=== PATIENT | female | born 1955 | race Caucasian/White ===

== ENCOUNTER → 2023-10-28 12:56 | Outpatient (CLI) | payer OTHER, SELFPAY ==
[2023-10-28 13:58] LABS: Appearance Urine UA CLEAR; Bilirubin Urine UA NEGATIVE (NEGATIVE); Color Urine UA YELLOW; Glucose Urine UA NEGATIVE (Negative); Ketones Urine UA NEGATIVE (NEGATIVE); Leukocyte Esterase Urine UA NEGATIVE (NEGATIVE); Nitrite Urine UA NEGATIVE (Negative); Occult Blood Urine UA NEGATIVE (Negative); Protein Urine UA NEGATIVE (Negative); Specific Gravity Urine UA <=1.005 (1.000-1.035); Urobilinogen Urine UA 0.2 E.U./dL (0.2)
[2023-10-28 14:02] LABS: pH Urine UA 6.5 (4.5-8.0)
[2023-10-28 14:05] LABS: Bacteria Urine None Seen; Culture Indicated Urine Cult Not Indicated; RBC Urine None Seen (0-5/HPF); Squamous Epithelial Cell Urine None Seen (0-5/HPF); Urine Volume 10mL (spun); WBC Urine None Seen (0-5/HPF)
[2023-10-28 14:11] LABS: Hemoglobin A1C% w Est Avg Glu 6.4 % (4.0-6.0)
[2023-10-28 14:26] LABS: Add Manual Diff / Slide Review NO; Basophils Absolute Auto 0 /uL (0-100); Basophils Percent Auto 0.7 % (0-2); Eosinophils Absolute Auto 700 /uL (0-450); Eosinophils Percent Auto 10.6 % (2-4); Hematocrit 36.6 % (36-46); Hemoglobin 11.9 g/dL (12.0-16.0); Lymphocytes Absolute Auto 1900 /uL (1100-4500); Lymphocytes Percent Auto 27.8 % (25-40); Mean Corpuscular HGB Conc 32.4 % (30-36); Mean Corpuscular Hemoglobin 27.3 PG (26-34); Mean Corpuscular Volume 84.4 fL (80-100); Monocytes Absolute Auto 500 /uL (0-900); Monocytes Percent Auto 7.4 % (3-14); Neutrophils Absolute Auto 3700 /uL (1500-7000); Neutrophils Percent Auto 53.5 % (50-75); Platelet Count 310 X10^3/uL (150-400); Red Blood Cell Count 4.34 X10^6/uL (4.0-5.2); Red Cell Distribution Width 15.4 % (11.6-14.8)
[2023-10-28 14:38] LABS: BUN Creatinine Ratio 23.9 (6-22); Blood Urea Nitrogen 17 mg/dL (7-17); Calcium 9.3 mg/dL (8.4-10.2); Carbon Dioxide 30 mmol/L (22-32); Chloride 101 mmol/L (98-107); Estimated Glomerular Filt Rate > 60 mL/min (>60); Glucose 134 mg/dL (80-110); HEMOLYSIS < 15 (0-50); Potassium 4.5 mmol/L (3.4-5.1); Sodium 134 mmol/L (137-145)
== END ==
PROVIDERS: PCP Naturopath; Referring Provider Orthopaedic Surgery; Visit Provider Orthopaedic Surgery
DX: Z01.818 Encounter for other preprocedural examination (principal); Z01.812 Encounter for preprocedural laboratory examination; R73.9 Hyperglycemia, unspecified; N39.0 Urinary tract infection, site not specified
CPT/HCPCS: 36415; 80048; 81001; 83036; 85025; 93005; 93010

== ENCOUNTER 2023-11-24 13:25 | Day surgery (SDC) | payer OTHER, SELFPAY ==
[2023-11-18 12:57] VITALS: BMI 27.3
[2023-11-24] VITALS (8 sets, daily range): BP systolic 135–171; BP diastolic 65–83; PULSE 76–88; RESP 11–18; TEMP 35.9–36.9; O2SAT 97–100; BMI 27.3
--- NOTE | 2023-11-24 | DI.RAD.S_ITS ---
PROCEDURE: XR HIP W PEL IF DONE RT 2V INDICATIONS: RIGHT ANTERIOR HIP TECHNIQUE: AP pelvis with lateral view(s) of the right hip(s). COMPARISON: [facility], CR, XR PELVIS WITH LATERAL HIP RIGHT, 10/23/2023, 11:04. [facility], CR, XR HIP W PEL IF DONE RT 2V, 11/24/2023, 17:47. FINDINGS: Bones: No fractures or dislocations. Pelvic ring appears intact. No suspicious bony lesions. Soft tissues: The visualized bowel gas pattern is normal. No suspicious soft tissue calcifications. IMPRESSION: No acute bony abnormality. Dictated by: Melania Mathews M.D. on 11/24/2023 at 19:42 Approved by: Melania Mathews M.D. on 11/24/2023 at 19:43
--- NOTE | 2023-11-24 06:00 | DI.RAD.S_ITS ---
PROCEDURE: XR HIP W PEL IF DONE RT 2V INDICATIONS: HAILE TECHNIQUE: AP pelvis with lateral view(s) of the right hip(s). COMPARISON: [facility] ROCAEL Summers, XR PELVIS WITH LATERAL HIP RIGHT, 10/23/2023, 11:04. FINDINGS: Multiple intra-articular fluoroscopy images demonstrate right total hip arthroplasty. IMPRESSION: Right total hip arthroplasty. Dictated by: Melania Mathews M.D. on 11/24/2023 at 19:16 Approved by: Melania Mathews M.D. on 11/24/2023 at 19:17
[2023-11-24] MEDS: CELECOXIB 200 MG CAPSULE PO (13:50)
[2023-11-24] MEDS: LACTATED RINGERS 1,000 ML 42 ML IV (14:05)
[2023-11-24] MEDS: ACETAMINOPHEN 325 MG TABLET 975 MG PO (15:54)
[2023-11-24] MEDS: VANCOMYCIN 1,000 MG/200 ML PIGGYBACK 200 MG IV (15:54)
--- NOTE | 2023-11-24 16:22 | PM.PREOP ---
Pre-operative Note Interval Note History & Physical reviewed/Exam performed by Physician: Yes Changes to H&P: No
--- NOTE | 2023-11-24 16:24 | PM.PREOP ---
Pre-operative Note Interval Note History & Physical reviewed/Exam performed by Physician: Yes Changes to H&P: No
--- NOTE | 2023-11-24 16:25 | P.OP_ITS ---
Operative Date/Time/Diagnoses Date of procedure: 11/24/23 Time of procedure: 16:40 Pre-op diagnosis: Severe right hip OA Post-op diagnosis: same Procedure & Clinicians Procedure: Right total hip arthroplasty anterior approach Same procedure as scheduled: Yes Indications: The patient has had progressively worsening right hip pain with radiographic changes consistent with arthritis. Non-operative management has failed and the patient has requested total hip replacement. The risks, benefits and alternatives to surgery were discussed with the patient prior to proceeding. Risks discussed included, but were not limited to, failure to relieve pain, leg length discrepancy, dislocation, stiffness, infection, nerve damage, deep venous thrombosis, pulmonary embolism, stroke, coma, heart attack, permanent paralysis and , as well as the potential need for eventual revision of the prosthetic. Surgeon: Gretchen Loredo Ceramic Research Engineer: Mayra Smith Anesthesia Type: General and Spinal Operative Notes Findings: Severe right hip OA, adequate bone, adequate stability Closure Type: primary Specimen(s): none sent Prosthetic devices, grafts, tissues, transplants, or devices: Loredo and nephew polar size 2 standard offset, R3 size 50, neutral poly liner,one 6.5 mm screw, 50 x 36 mm liner, 36 x -3 Oxinium head Estimated Blood Loss (mL): 250 Blood products transfused: none Procedure in detail: The patient was brought to the operating room. Patient was carefully positioned in the supine position. Time-out was performed and antibiotics were given. Anesthesia was induced. She was positioned in the on the table in order to allow hyperextension of the hip. The right lower extremity was prepped and draped in a standard sterile fashion. An anterior right hip incision was made 1 fingerbreadth lateral to the anterior superior iliac spine and extended distally towards the greater trochanter. Dissection was carried out through skin and subcutaneous tissues. Superficial hemostasis was achieved. The fascia over the tensor fascia viviana was defined and incised with a knife. Two Allis clamps were used to grasp the fascia. Tensor fascia viviana was retracted laterally. A gelpi retractor was placed. Dissection was carried out down along the neck. The circumflex vessels were carefully identified and cauterized with the Aqua Mantis. A PA was used during the procedure and was essential for intraoperative retr action safe implantation of the components. There was good visualization of the femoral neck. A Cobra was placed superior to the neck and the gluteus fibers were carefully stripped from that superior aspect of the capsule. A 2nd retractor was placed along the inferior aspect of the neck. The rectus insertion along the capsule was partially released. A 3rd retractor that was then gently placed over the rim of the acetabulum under the rectus. Capsule was carefully incised and released from the intertrochanteric line circumferentially superior to the mid sagittal line and inferiorly to the mid sagittal line until the lesser trochanter was palpable. A tag stitch was placed both in the superior and inferior limb of the capsular insertion. Along the acetabulum capsule was also released up to the mid sagittal 12:00 position. A portion of the labrum was resected. A saw was used to perform an osteotomy at the level of the intertrochanteric line and the junction of the superior femoral neck leaving approximately 1 finger breath of residual inferior neck above the lesser trochanter. A 2nd cut was made along the femoral neck at the base of the head and a napkin ring of neck was removed. Corkscrew was placed in the femoral head and the head was removed without difficulty. Retractors were then repositioned around the acetabulum. Residual labrum was resected and additional osteophytes were removed. A reamer that was 4 mm below the templated size was placed by hand in the acetabulum and it was reamed to centralize the acetabulum. It was then reamed up to 2 under the templated size and fluoroscopy was brought in to confirm the position of the reaming and depth of reaming. I reamed 1 under the anticipated size. A trial cup was placed and noted that it was appropriately sized and fluoroscopy confirmed position and depth. The component was open and inserted without difficulty fluoroscopic imaging was used to confirm that the cup had been adequately seated and was well positioned. It was further stabilized with a single screw. Neutral poly liner was placed. The cup was tested and noted to be stable. Attention was then directed to the femur. The femur was gently hyperextended additional capsular release was performed as needed in order to allow adequate visualization of the proximal femur with elevation of the femur. Patient was placed in a hyperextended slightly adducted position with maximum external rotation. Box osteotome was used to check for any residual neck as well as sclerotic bone along the trochanter. [place] pepper was placed in the femur. Additional broaching was performed. Canal finder was used to determine the alignment of the canal and position. Size 1 broach was placed. The canal was then appropriately broached up to the templated size as long as there was adequate stability of the broach and serial advancement of the broach without excessive impingement. Specific attention was directed at avoiding varus attempting to direct the distal aspect of the broach more anteriorly and avoiding excessive anteversion. Trial reduction showed acceptable range of motion, good stability, no posterior impingement, sabianism of leg length and appropriate lateral shuck. I also hyperflexed the hip and checked that there was no impingement anteriorly and there was good stability with flexion, adduction and internal rotation. Marcaine and Exparel were injected. The stem was placed without difficulty. Repeat trial reduction and x-ray showed acceptable overall position, length, and no evidence of the femoral fracture. Final head was placed. Wound was meticulously irrigated with normal saline. The hip was reduced and additional Exparel and Marcaine were injected. The capsule was closed with interrupted nonabsorbable sutures. The fascia of the tensor was closed with interrupted and running Vicryl. No drain was placed. Any tensor fascia viviana muscle that appeared to be contused or injured which was a minimal amount was carefully resected. Capsule around the tensor was injected with Exparel and Marcaine. The skin was closed with barbed stitches for the subcutaneous tissue and skin. We also used surgical glue. The wound was dressed sterilely. Brief Betadine soak was also used and was meticulously irrigated with normal saline. Patient was transferred to recovery room in satisfactory condition. Complications: none Post-operative Condition: stable Disposition: Acute Care Plan for aftercare: The patient will be maintained on a standard total hip replacement protocol with weight bearing as tolerated and anterior hip precautions. The patient will receive Aspirin and sequential compression devices for DVT prophylaxis. The patient will be discharged home when safe for the home environment.
[2023-11-24] MEDS: TRANEXAMIC ACID 1,000 MG VIAL 2000 MG INJ (16:36)
[2023-11-24] MEDS: CEFAZOLIN 2 GM/100 ML PREMIX 100 ML IV (16:36)
[2023-11-24] MEDS: BUPIVACAINE 0.25% (PF) 60 ML, EPINEPHrine 0.3 MG INJ (17:38)
[2023-11-24] MEDS: BUPIVACAINE LIPOSOME 266 MG/20 ML VIAL INJ (17:38)
[2023-11-24] MEDS: ONDANSETRON 4 MG/2 ML INJ IV (19:31)
[2023-11-24] MEDS: OXYCODONE IR 5 MG TABLET PO (19:31)
[2023-11-24] MEDS: LACTATED RINGERS 1,000 ML 100 ML IV (20:43)
[2023-11-24] MEDS: ASPIRIN EC 81 MG TABLET PO (20:44)
[2023-11-24] MEDS: ATORVASTATIN 20 MG TABLET 10 MG PO (20:44)
[2023-11-24] MEDS: DOCUSATE 100 MG CAPSULE PO (20:44)
[2023-11-24] MEDS: METFORMIN HCL 500 MG TABLET PO (20:44)
[2023-11-24] MEDS: ACETAMINOPHEN 325 MG TABLET 650 MG PO (20:52)
[2023-11-24] MEDS: IBUPROFEN 400 MG TABLET PO ×2 (20:52→20:53)
[2023-11-24] MEDS: polyethylene glycoL 3350 17 GM POWD.PACK PO (20:53)
[2023-11-24] MEDS: MELATONIN 3 MG TABLET 6 MG PO (22:56)
[2023-11-24] MEDS: OXYCODONE IR 10 MG TABLET PO (22:57)
[2023-11-25] VITALS: BP 157/74; PULSE 81; RESP 19; TEMP 36.4; O2SAT 98
[2023-11-25] MEDS: CEFAZOLIN 2 GM/100 ML PREMIX 100 ML IV ×2 (00:07→07:49)
--- NOTE | 2023-11-25 00:18 | PC.ADMIT ---
Addendum entered by Maliha Neal R.N. 11/25/23 00:20: Up to BSC/toilet and had 500cc urinary output. Original Note: [id number] Admission Note: Patient arrived to AC unit at 20:01 from PACU. Alert and oriented x 4, pleasant, cooperative. Denies pain. LR @ 100. Awaiting post op void. Oriented to room and call light, bed in low/locked position and call light within reach. The patient,Hardik Chandra,68 y/o, was given written information regarding hospital policies, unit procedures and contact persons. Patient's smoking status: Former smoker. Vital Signs - 8 hr 11/24/23 19:14 11/24/23 19:18 11/24/23 19:23 Temperature 97.9 F Pulse Rate 86 88 86 Respiratory Rate 11 L 11 L 11 L Blood Pressure 135/73 154/79 H 147/70 H Pulse Oximetry 97 97 97 Oxygen Delivery Method Room Air Room Air Room Air Oxygen Flow Rate 11/24/23 19:34 11/24/23 19:59 11/24/23 20:30 Temperature 96.7 F L 97 F L Pulse Rate 83 82 76 Respiratory Rate 13 17 18 Blood Pressure 139/75 140/65 164/76 H Pulse Oximetry 98 97 99 Oxygen Delivery Method Room Air Oxygen Flow Rate 0 0 11/24/23 21:00 11/24/23 22:36 Temperature 97.3 F L 97.5 F L Pulse Rate 78 81 Respiratory Rate 18 19 Blood Pressure 157/77 H 157/74 H Pulse Oximetry 98 98 Oxygen Delivery Method Oxygen Flow Rate 0 0
[2023-11-25] MEDS: OXYCODONE IR 5 MG TABLET PO ×2 (02:33→11:15)
[2023-11-25] MEDS: ACETAMINOPHEN 325 MG TABLET 650 MG PO ×2 (02:33→08:16)
[2023-11-25] MEDS: LEVOTHYROXINE 100 MCG TABLET PO (05:16)
[2023-11-25 05:35] LABS: Hematocrit 31.5 % (36-46); Hemoglobin 10.6 g/dL (12.0-16.0)
--- NOTE | 2023-11-25 07:10 | P.DS_ITS ---
History of Present Illness History of Present Illness Date Patient Seen: 11/25/23 Time Patient Seen: 07:10 Chief complaint: Right Total Hip Arthroplasty/Anterior Narrative: Operative Date/Time/Diagnoses Date of procedure: 11/24/23 Time of procedure: 16:40 Pre-op diagnosis: Severe right hip OA Post-op diagnosis: same Procedure & Clinicians Procedure: Right total hip arthroplasty anterior approach Same procedure as scheduled: Yes Indications: The patient has had progressively worsening right hip pain with radiographic changes consistent with arthritis. Non-operative management has failed and the patient has requested total hip replacement. The risks, benefits and alternatives to surgery were discussed with the patient prior to proceeding. Risks discussed included, but were not limited to, failure to relieve pain, leg length discrepancy, dislocation, stiffness, infection, nerve damage, deep venous thrombosis, pulmonary embolism, stroke, coma, heart attack, permanent paralysis and , as well as the potential need for eventual revision of the prosthetic. Surgeon: Gretchen Loredo Mental Health Director: Mayra Smith Anesthesia Type: General and Spinal Operative Notes Findings: Severe right hip OA, adequate bone, adequate stability Closure Type: primary Specimen(s): none sent Prosthetic devices, grafts, tissues, transplants, or devices: Loredo and nephew polar size 2 standard offset, R3 size 50, neutral poly liner,one 6.5 mm screw, 50 x 36 mm liner, 36 x -3 Oxinium head Estimated Blood Loss (mL): 250 Blood products transfused: none Discharge Providers Provider Discharge Date: 11/25/23 Primary care physician: Almaz Sena ND Consults: 11/24/23 06:00 Consult to Anesthesiology Routine Comment: Consulting Provider: Anesthesiologist Reason for consultation: Regional block for post operative pain control 11/24/23 19:59 Consult to Discharge Planning Routine Comment: Consult to Occupational Therapy Evaluate & Treat Comment: Physician Instructions: Evaluate and treat Consult to Physical Therapy Evaluate & Treat Comment: Physician Instructions: post op HAILE protocol Discharge provider: Mayra Smith PA-C Summary Hospital Course Discharge Diagnosis: Right hip osteoarthritis, s/p right total hip arthroplasty. Hospital Course: Ms Chandra's hospital course was unremarkable. On the morning of POD# 1, she had been OOB but had not yet worked w/ PT. She was eating and voiding without difficulty and her pain was well-controlled with oral medication. She wanted to go home. Exam Vital Signs (past 8 hours): - 05/08/24 00:00 Temperature 97.5 F L Pulse Rate 81 Respiratory Rate 19 Blood Pressure 157/74 H Pulse Oximetry 98 Oxygen Flow Rate 0 Oxygen Delivery Method Room Air Oxygen Flow Rate 0 Narrative Exam Narrative: 5/5 strength in hip flexors, quadriceps, hamstrings, DF, PF, EHL on right. Sensation to light touch intact throughout RLE, calf soft, compressible, nontender. Aquacel dressing CDI. Objective Labs 11/25/23 04:56 Labs: Laboratory Results - last 24 hr 11/25/23 04:56 Hgb 10.6 L Hct 31.5 L PFSH Medical History (Updated 11/18/23 @ 13:25 by Luz Rivero RN) History of COVID-19 (2021) Hypothyroidism Hx gestational diabetes Diabetes (~2020) Hx of one miscarriage IBS (irritable bowel syndrome) HLD (hyperlipidemia) Surgical History (Updated 11/18/23 @ 13:15 by Luz Rivero RN) History of hysterectomy History of gynecologic surgery Social History household members: spouse and children Smoking Status: Former smoker alcohol intake: current Discharge Assessment & Plan Assessment and Plan Assessment: Right hip osteoarthritis, s/p right total hip arthroplasty. Plan of Treatment: Discharge home after PT if PT agrees, multimodal pain control (pt has meds at home), outpt PT, f/u in office as scheduled. Discharge Plan Discharge Plan Patient Disposition: Home Discharge orders & Medications Discharge Orders: Discharge (Order); Ordered 11/25/23 Ordered By: Mayra Smith Prescriptions: New omeprazole 20 mg capsule,delayed release(DR/EC) 20 mg PO DAILY Qty: 30 2RF Rx Instructions: TAKE DAILY WHILE YOU ARE TAKING IBUPROFEN Continued metformin 500 mg Tablet 500 mg PO BID docusate calcium 240 mg Capsule 240 mg PO DAILY PRN (Reason: Constipation) simvastatin 10 mg Tablet 10 mg PO BEDTIME acetaminophen 650 mg Tablet Extended Release 1,300 mg PO Q12H PRN (Reason: Pain) levothyroxine 100 mcg Tablet 100 mcg PO DAILY ibuprofen 200 mg Tablet 400 mg PO Q6H PRN (Reason: Pain) Follow up/Referrals: Almaz Sena ND [Primary Care Provider] - Gretchen Loredo MD [Physician] - 12/08/23 10:30 am (Follow up w/ Anibal Yang PA-C, at [facility] office in [place].) Diet/Activity/Treatments Diet: Diet as Tolerated Activity: Weightbearing as tolerated. Anterior hip precautions. Cold/Heat Therapy: Ice to hip as needed for pain. Skin/Wound/Dressing Care Report to your healthcare provider any signs of infection, such as:: chills, fever, night sweats, unusual drainage and unusual redness Dressing: May shower. Leave dressing in place until follow up in office. No bathing or otherwise soaking incision. Call the office if the dressing becomes saturated inside. Visit Report/Discharge Packet Instructions: DI for Hip Replacement, DI for Prescription Opioid Use Stand Alone Forms: Patient Portal/API, Surgery Discharge Discharge Data Primary Care Provider: Almaz Sena Attending Provider: Gretchen Loredo VTE Deep Vein Thrombosis/Pulmonary Embolism Present on Admission: No
[2023-11-25 08:00] VITALS: BP 109/49; PULSE 73; RESP 16; TEMP 36.5; O2SAT 99
[2023-11-25] MEDS: METFORMIN HCL 500 MG TABLET PO (08:15)
[2023-11-25] MEDS: DOCUSATE 100 MG CAPSULE PO (08:15)
[2023-11-25] MEDS: ASPIRIN EC 81 MG TABLET PO (08:16)
[2023-11-25] MEDS: IBUPROFEN 400 MG TABLET PO ×2 (08:16→12:35)
--- NOTE | 2023-11-25 09:30 | OT.IP.EVAL ---
Current Diagnoses Unilateral primary osteoarthritis, right hip (11/24/23) Surgery Performed Operation Date: 11/24/23 13:45 Actual Procedures p Total Hip Arthroplasty/Anterior Approach(Right) - Gretchen Loredo MD Past Medical History (Last Updated 11/18/23 @ 13:25 by Luz Rivero, RN) Diabetes (~2020) History of COVID-19 (2021) HLD (hyperlipidemia) Hx gestational diabetes Hx of one miscarriage Hypothyroidism IBS (irritable bowel syndrome) Surgical History (Last Updated 11/18/23 @ 13:15 by Luz Rivero RN) History of gynecologic surgery History of hysterectomy Occupational Therapy Inpatient Evaluation/Re-Eval M1 PT/OT-IP Prior Functional Status Start: 11/25/23 09:30 Freq: NEEDED Status: Active Protocol: Document 11/25/23 09:31 [facility] (Rec: 11/25/23 09:51 [facility] [id number]) Medical Review Prior Functional Status Communication Independent Mobility and Gait Independent with no device but has pain. 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 Social History Household Members spouse,children Living Arrangements House Number of Floors (Floors) One Floor Number of Stairs To Enter/Railing? 3 steps with right rail 2 steps down to the laundry with left rail however will not have to do. Home Environment Standard Height Toilet,Walk in Shower Home Equipment Front Wheel Walker,Four Wheel Walker,Straight Cane,Hand Held Shower,Long Handled Sponge, Composite Layup Worker M2 OT-IP Current Condition Start: 11/25/23 09:30 Freq: Status: Active Protocol: Document 11/25/23 09:31 [facility] (Rec: 11/25/23 09:51 [facility] [id number]) Occupational Therapy Current Condition Current Condition Evaluation Date 11/25/23 Treatment Diagnosis S/P R HAILE anterior approach Diagnosis Onset Date 11/24/23 Post Operative Precautions Anterior Hip Precautions No Hip Extension,No Hip External Rotation M3 OT- IP Subjective and Pain Start: 11/25/23 09:30 Freq: Status: Active Protocol: Document 11/25/23 09:31 [facility] (Rec: 11/25/23 09:51 [facility] [id number]) OT- Subjective Occupational Therapy Visit Type Type Initial Evaluation Visit Start Time 08:45 Visit Stop Time 09:30 Occupational Therapy Visit Comments Patient Comments Pt agreed to get up to shower. Patient/Caregiver Goals To go home. OT Pain Assessment Pain When Pain Assessed During Mobility Pain Present Pain Present Pain Reported Location right hip Intensity 5 Scale Used Numeric (0 - 10) M4 OT- IP ADL's Start: 11/25/23 09:30 Freq: Status: Active Protocol: Document 11/25/23 09:31 [facility] (Rec: 11/25/23 09:51 [facility] [id number]) OT MXL-Vsiw-Szgkanv General Evaluation Self-Feeding Ability Independent OT ADL-Grooming General Evaluation Grooming Ability Standby Assistance Areas Needing Assistance Retrieving/Set-up of Grooming Items Comments OT Grooming Comments Able to do while standing and after set -up. OT ADL-Oral Care General Eval Oral Care Ability Independent Comments Oral Care Comments WHile standing with FWW. OT ADL-Dressing General Eval Upper Body Dressing Ability Independent Lower Body Dressing Ability Moderate Assistance Areas Needing Assistance Retrieving/Set-up of Clothing, Socks,Shoes Comments OT Dressing Comments Able to show pt use of socks aid and corporate compliance director for LB dressing needs. Educated to dress her RLE first and take out last and to be sure not to externally rotate his RLE. OT ADL-Toileting General Evaluation Toileting Ability Standby Assistance Comments OT Toileting Comments VC to be mindful of her RLE positioning for toileting needs for hygiene, therefore standing seems to work better for her. Suggested use of pads at night. OT ADL-Bathing Bathing Type Bathing Type Shower General Evaluation Bathing Ability Moderate Assistance Areas Needing Assistance Wash/Dry Back,Wash/Dry Lower Extremities Devices Bathing Equipment Hand Held Shower Sprayer, Shower Chair with Arms Comments OT Bathing Comments After shower, pt agreed that would be best to get a BSC. Pt needing assist for her RLE and back for showering needs. Educated on care of dressing while showering. M5 OT- IP IADL's Start: 11/25/23 09:30 Freq: Status: Active Protocol: Document 11/25/23 09:31 [facility] (Rec: 11/25/23 09:51 [facility] [id number]) OT-Instrumental Activities of Daily Living Deficits IADL Deficits Identified Deficits Home Safety Awareness Awareness of Need for Assistance at Home Good Awareness Ability to Problem Solve Emergency Able to Problem Solve Situations Medication Management Medication Management No Deficits Identified Money Management Money Management No Deficits Identified Meal Preparation Meal Preparation Comments Pt will benefit from assist. Manufacturing Technology Analyst Manufacturing Technology Analyst Comments Pt will benefit form assist. M6 OT- IP Functional Cognition Start: 11/25/23 09:30 Freq: Status: Active Protocol: Document 11/25/23 09:31 [facility] (Rec: 11/25/23 09:51 [facility] [id number]) Cognitive Factors Limiting Selfcare Function Cognitive Ability Level of Alertness Alert Patient Orientation Name,Age,Birthday,Month,Date, Year,Day of Week,Place, Situation Attention Span Ability Capable of Focused Attention, Capable of Sustained Attention Ability to Follow Commands Able to Follow One Step Commands Safety Awareness Decreased Ability to Apply Precautions Cognitive Comments Cognitive Assessment Comments Pt able to follow her hip precautions but needing occasional vc to follow to best incorporate her hip precautions for ADL and mobility needs. OT- Vision and Hearing OT- Hearing Assessment OT- Hearing Assessment WFL OT- Vision Assessment Visual Acuity Glasses All The Time Visual Attentiveness WFL Occular Pursuits WFL M7 OT- IP Mobility and Balance Start: 11/25/23 09:30 Freq: Status: Active Protocol: Document 11/25/23 09:31 [facility] (Rec: 11/25/23 09:51 [facility] [id number]) OT-Transfer Assessment Sit to and From Stand Sit to and from Stand Standby Assistance Transfers Transfer Ability Standby Assistance Technique Transfer Destination Chair,Shower Stall,Toilet Transfer Technique Stand Step Pivot Devices Transfer Assistive Devices Front Wheeled Walker Comments Mobility Comments SBA with FWW, VC to keep theh FWW in front of her at all time and vc to lead with her RLE and back up with her LLE. Pt heavy use of the FWW and not putting much weight on her RLE. Encouraged pt to put weight on the RLE. Educated pt on bed mobility and car transfers. OT- Balance Assessment Sitting Balance and Reactions Static Sitting Balance Ability Normal Dynamic Sitting Balance Ability Normal Standing Balance and Reactions Static Standing Balance Ability Good Dynamic Standing Balance Ability Fair M8 OT- IP Objective Assessments Start: 11/25/23 09:30 Freq: Status: Active Protocol: Document 11/25/23 09:31 [facility] (Rec: 11/25/23 09:51 [facility] [id number]) OT Gross Range of Motion Upper Extremity Range of Motion Assessment Within Functional Limits OT Strength Upper Extremity Strength Assessment Within Functional Limits M9 OT- IP Assessment and Plan Start: 11/25/23 09:30 Freq: Status: Active Protocol: Document 11/25/23 09:31 [facility] (Rec: 11/25/23 09:51 [facility] [id number]) OT Summary Assessment and Plan Potential Rehabilitation Potential Excellent Analytic Complexity at Evaluation Low Summary OT Impairments Pain,Balance,Functional Mobility,Dressing,Toileting, Bathing,Toilet Transfers, Shower Transfers Progress Towards Goals Progressing Toward Goals Assessment Summary Pt low complexity and doing well and able to follow her anterior hip precautions for all ADL's with vc and use of FWW. Able to suggest getting a shower chair and sock aid for pt. Pt to go home with her and attend outpt PT. Goals Dressing Goal Independent,Composite Layup Worker,Sock Aid Toileting Goal Independent Bathing Goal Standby Assistance,Hand Held Shower Sprayer,Long Handled Sponge or [place] Toilet Transfer Goal Independent Shower Transfer Goal Independent Days to Meet Goals 2 Frequency of Treatment Frequency Of Treatment Once a Day Treatment Plan OT Treatment Plan ADL Training,Functional Mobility,Patient/Family Education,Discharge Planning Discharge Recommendations OT Discharge Recommendations Home with Assistance, Outpatient PT Home Equipment Needs shower chair, sock aid Transportation Needs at Discharge Private Vehicle
--- NOTE | 2023-11-25 11:10 | PT.IIE ---
Current Diagnoses Unilateral primary osteoarthritis, right hip (11/24/23) Surgery Performed Operation Date: 11/24/23 13:45 Actual Procedures p Total Hip Arthroplasty/Anterior Approach(Right) - Gretchen Loredo MD Surgical History (Last Updated 11/18/23 @ 13:15 by Luz Rivero, RN) History of gynecologic surgery History of hysterectomy Medical History (Last Updated 11/18/23 @ 13:25 by Luz Rivero, RN) Diabetes (~2020) History of COVID-19 (2021) HLD (hyperlipidemia) Hx gestational diabetes Hx of one miscarriage Hypothyroidism IBS (irritable bowel syndrome) Physical Therapy Inpatient Evaluation/Re-Eval M1 PT/OT-IP Prior Functional Status Start: 11/25/23 12:37 Freq: NEEDED Status: Active Protocol: Document 11/25/23 11:10 [facility] (Rec: 11/25/23 12:53 AB [id number]) Medical Review Prior Functional Status Medical History Reviewed Yes Communication able to make needs known Mobility and Gait pt stated that she was modified independent with all mobilties and ambulation without AD Activities of Daily Living and IADL's per OT note: Had pain with ADL , IADL , and 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 Social History Household Members spouse,children Living Arrangements House Number of Floors (Floors) One Floor Number of Stairs To Enter/Railing? 3 steps R rail ascending to enter the house Home Environment Standard Height Toilet,Walk in Shower Home Equipment Front Wheel Walker,Four Wheel Walker,Straight Cane,Hand Held Shower,Long Handled Sponge, High Density Finishing Operator Additional Social History Comment pt lives with spouse and son but son works and will not be able to assist pt M2 PT-IP Current Condition Start: 11/25/23 12:37 Freq: NEEDED Status: Active Protocol: Document 11/25/23 11:10 [facility] (Rec: 11/25/23 12:53 AB [id number]) Physical Therapy Current Condition Current Condition Evaluation Date 11/25/23 Treatment Diagnosis s/p R HAILE anterior; difficulty in walking Onset Date 11/24/23 M3 PT-IP Subjective Start: 11/25/23 12:37 Freq: NEEDED Status: Active Protocol: Document 11/25/23 11:10 [facility] (Rec: 11/25/23 12:53 AB [id number]) Subjective Physical Therapy Visit Type Type Initial Evaluation Visit Start Time 11:10 Visit Stop Time 12:15 Number of SENIOR MOBILE WEB DEVELOPER Visits 0 Physical Therapy Visit Comments Patient Comments agreeable to do PT Therapy Pain Assessment Pain When Pain Assessed At Rest Pain Present Pain Present Pain Reported Location right hip Intensity 7 Scale Used Numeric (0 - 10) Pain Behaviors Guarding,Holding Area Pain Management Techniques Distraction,Modification of Treatment,Re-positioning, Timing of Activity with Medications M4 PT-IP Mobility and Gait Start: 11/25/23 12:37 Freq: NEEDED Status: Active Protocol: Document 11/25/23 11:10 [facility] (Rec: 11/25/23 12:53 AB [id number]) PT-Bed Mobility Assessment Supine to Sit Supine to Sit Standby Assistance Sit to Supine Sit to Supine Standby Assistance PT-Transfer Assessment Sit to and From Stand Sit to and from Stand Standby Assistance,Contact Guard Assistance,1 Person Assistance,Use of Upper Extremities Equipment Transfer Assistive Device Gait Belt,Large Based Quad Cane Orthotic/Prosthetic Devices or Brace: No Transfers Transfer Destination Bed,Chair Transfer Technique ambulated Transfer Ability Level of Assist Standby Assistance,Contact Guard Assistance,1 Person Assistance,Use of Upper Extremities Comments Mobility Comments pt sitting on the chair and agreeable to do PT. obtained PLOF and home set up from pt. pt with slight confusion. pt already had OT. asked pt regarding her hip precautions and pt unable to recall. educated pt regarding anterior hip precautions. revewied HEP. BP sittin/73 pt completed sit to stand CGA and cues for techniques. pt sat back down. educated on sit<>stand techniques. pt completed sit to stand again SBA. pt ambulated in room using FWW ~ 30 ft CGA. pt sat on EOB. pt presents with an antalgic gait with increase R knee flexion in standing. pt with lateral pelvic tilt to the R. completed sit<>supine SBA and cues for techniques. pt agreed to do stairs. completed sit to stand from EOB SBA to CGA and ambulated in the hallway using FWW ~ 75 ft SBA to CGA. stair climbing techniques. educated pt on how to do stairs. pt with memory issues and needs cues for safety on how to do stair climbing. pt completed up/down stair holding on to R rail with B hands CGA to min A and max cues. assisted pt back to her room. ambulated from w/c to chair using fWW SBA. positioned pt on the chair. call light and table placed within reach. pt stated that spouse will be coming in after his dentist's appointment. stated that spouse may be her at ~ 1pm. informed regarding caregiver training and pt agreed. informed nurse regarding caregiver training this afternoon. Gait Assessment Gait Gait Assistance Required: Standby Assistance,Contact Guard Assist Distance (Feet) 75 Able to Maintain Weight Bearing Status Yes During Gait Assistive Devices Assistive Device Gait Belt,Front Wheeled Walker Orthotic/Prosthetic Devices or Brace: No Gait Deviations General Gait Pattern Antalgic,Decreased Feet Clearance Factors Limiting Gait Function Factors Limiting Gait Function Decreased Activity Tolerance, Decreased Strength,Difficulty Following Directions,Limited Range of Motion,Pain,Poor Balance,Poor Safety Awareness Stair Climbing Assessment Evaluation Level of Assist On Stairs Contact Guard Assistance, Minimal Assistance Devices Stair Climbing Assistive Devices Right Railing Technique/Endurance Stair Climbing Direction Ascend and Descend Stair Climbing Technique Step to Step Number of Steps Climbed 3 Query Text: Stair Climbing Set # Repetitions (reps) 1 PT-Balance Assessment Sitting Balance and Reactions Static Sitting Balance Ability Normal Dynamic Sitting Balance Ability Good Standing Balance and Reactions Static Standing Balance Ability Fair Dynamic Standing Balance Ability Fair Device Used FWW M5 PT-IP Objective Assessments Start: 11/25/23 12:37 Freq: NEEDED Status: Active Protocol: Document 11/25/23 11:10 AB (Rec: 11/25/23 12:53 AB [id number]) Orientation Orientation/Cognition Level of Alertness Alert Orientation Name Language Function Ability No Deficits Noted Safety Awareness Decreased Safety Awareness Memory Description Short Term Impaired Comments pt with slight confusion Gross Range of Motion Lower Extremity ROM Assessment Within Functional Limits Strength Lower Extremity Strength Assessment Right Impaired Hip 3+/5 Knee 4-/5 Sensation Assessment Sensation Gross Sensation WNL Muscle Tone Muscle Tone WNL Yes M6 PT-IP Treatment Start: 11/25/23 12:37 Freq: NEEDED Status: Active Protocol: Document 11/25/23 11:10 AB (Rec: 11/25/23 12:53 AB [id number]) Physical Therapy Treatment Education Education Provided Precautions,Weight Bearing Status,Safety M7 PT-IP Assessment and Plan Start: 11/25/23 12:37 Freq: NEEDED Status: Active Protocol: Document 11/25/23 11:10 AB (Rec: 11/25/23 12:53 AB [id number]) PT Summary Assessment and Plan Potential Rehabilitation Potential Good Status of Condition at Evaluation Evolving Summary Impairments Pain,ROM,Strength,Balance, Coordination,Sensation,Tone, Cognition,Bed Mobility, Transfers,Gait,Activity Tolerance Assessment Summary pt is a 68 y/o F s/p R HAILE anterior approach POD 1. pt has R hip anterior precautions and is WBAT. pt requiring CGA to min A with stairs and SBA to CGA with ambulation using fWW. pt with slight confusion/memory issues affecting safety and carryover of precautions. caregiver training will be conducted this afternoon. will continue to assess progress. Goals Bed Mobility Goal Independent Transfer Goal Independent,Front Wheeled Walker Gait Goal Independent,Front Wheel Walker Gait Distance 300 Other Goals up/down 3 steps R rail ascending SBA Days to Meet Goals 10 Frequency of Treatment Frequency Of Treatment Twice a Day Treatment Plan Physical Therapy Treatment Plan Bed Mobility Training,Transfer Training,Gait Training, Therapeutic Exercise,Balance Retraining,Post Op Education, Discharge Planning,Hot or Cold Pack,Neuromuscular Re-ed, Coordination Retraining,Manual Therapy Precautions Anterior Hip Precautions No Hip Extension,No Hip External Rotation Weight Bearing Status Weight Bearing Status Weight Bear as Tolerated Allowed Weight Bearing Amount (enter % RLE WBAT or #) (%) Recommendations To Nursing Amount of Assist Needed 1 Person Assist Discharge Recommendations PT Discharge Recommendations Home with Assistance, Outpatient PT Transportation Needs at Discharge Private Vehicle
--- NOTE | 2023-11-25 12:45 | CM.DANOTE ---
DCP Assessment Note Pt is a 68yo F here POD1 following Right total hip surg with Dr. Loredo. [facility] ASSURANCE SPECIALIST reviewed EMR. Per chart review, pt dc home with family. OT rec home with assistance. Per RN report, pt doing well likely no CM needs. ASSURANCE SPECIALIST entered room and introduced self and role. Pt resting in chair. Reports lives with spouse and adult children in [place] [facility]. Has a walker and cane for home. Reports spouse transport plan for home and that spouse is eager/excited to help care for her in her recovery. Pt denies any CM needs from this ASSURANCE SPECIALIST. Plan: home today with family support. No barriers to safe dc home identified at this time. Cm team will continue to follow as needed. NIKKI Alvarez Discharge Planning/Care Management CM Discharge Assessment Start: 11/25/23 12:43 Freq: Status: Active Protocol: Document 11/25/23 12:43 SL (Rec: 11/25/23 12:45 [id number]) Discharge Planning Assessment Assigned Mutton Puncher NIKKI Bill DPOA/Assigned Designee Name mae Hester Contact Information [phone] Advance Directives? No History Provided By Patient,Medical Record Prior Living Arrangements House Household Members spouse,children Type of transporation used prior to Drives own vehicle admit Independent with ADL's Yes Is patient alert and oriented? Yes DME Already Rented / Owned FWW / Walker,Cane Barriers to Discharge No Discharge Plan Home Transportation Arrangement family in POV Referrals Initiated None needed Whiteboard Updated in Patient Room with No name and ext. # of Mutton Puncher Review Status In Process Please Provide Date Initial DC 11/25/23 Assessment Was Performed Next Review Type Continued Stay Review Pre-Anesthesia Assessment Start: 11/18/23 12:57 Freq: Status: Active Protocol: Document 11/18/23 12:57 CAB (Rec: 11/18/23 13:25 CAB [id number]) Pre-Anesthesia Assessment Patient Information Reviewed Via Chart Review Diagnostic Results BMP/CMP,CBC,EKG,Urinalysis Comment Labs/EKG @ 10/28/23 Primary Care Provider Almaz Sena Seen Specialist in Last 12 Months Yes Specialist Seen Grassland Conservationist,Orthopedist Primary Language Frisian Automobile Accessories Installer Required No Height 168.91 cm Weight 78.018 kg Body Mass Index (BMI) 27.3 Hearing Ability Normal Visual Assist Glasses Dentition Type Teeth, Natural Present,Partial - Upper Barriers to Learning None Hx Anesthesia Reactions No Hx Family Anesthesia Reaction Yes: Cousin severe PONV Hx Malignant Hyperthermia No Hx Blood Transfusions Yes Hx Blood Transfusion Reaction No Anesthesia Review Requested No Acetylene Torch Solderer No alcohol intake current alcohol intake frequency holidays/special occasions only Smoking Status Former smoker how long ago did patient quit smoking approx 23 years ago Substance Use Type does not use Pain Present Pain Reported Musculoskeletal Symptoms Abnormal Gait,Difficulty Walking,Joint Pain History of Falling (Recent or History of No ) Patient is completely paralyzed or No completely immobile Mental Status Oriented to own ability Is patient on oxygen? No Does patient have PRICE/SOB No Hx Sleep Apnea No Currently Taking a Beta Colby No Can You Climb a Flight of Stairs Without Yes SOB Hx Chest Pain No Hx SOB No Hx Syncope or Dizziness No Anti-Coagulant Therapy No Has a Branch Employment Coordinator No Cardiac Testing No Hx Pacemaker/ICD No Pacemaker Rep Required? No Cardiac Clearance Received Not Applicable Diet Type At Home Regular Dysphagia No Gastrointestinal Symptoms Constipation Urinary Catheter Present No Hx Urinary Self Catheterization No HgbA1C 6.4 Date 10/28/23 Patient No Lactating No Hx Drug Resistant Organism No Presence of External or Internal Medical No Devices Have you had any close contact with No someone diagnosed with COVID-19? Received a COVID vaccine? Yes Received all doses? Yes Marital Status Lives With spouse,children Current Living Arrangements House Number of Floors (Floors) One Floor Number of Stairs To Enter/Railing? 3 Support System Child/Children,Spouse Does the Patient Have Assistance After Yes Surgery Patient Discharge Plan Description Return Home Comment Pt advised possible same day surgery Feels Safe in Current Environment Yes Been Physically Hurt or Threatened By a No Person in Current Environment Do you have thoughts of harming yourself None or others? Are you currently considering suicide? No Do you have a plan to hurt yourself or No Plan others? Do You Have Any Spiritual Beliefs That No May Affect Your HC Choices? Do You Have Any Cultural Practices That No May Affect Your HC Choices? Comment Alphonso Who Can We Speak to About Patient's Care Family, friends Identifying Code for Release of Patient Declines to issue Information Health Care Proxy/Next of Kin Mir () Health Care Proxy Emergency Contact Name Mir () Emergency Contact Advance Directives? No Power of Channel Lip Stiffener Insoles No PAC Instructions Diabetes instructions,Do not shave/clip surgical site, Durable medical equipment, Medications to take/avoid, Nasal antibiotic,No ETOH/ petroleum product on skin DOS, NPO,Post-op transportation,Pre -surgical wash,Sensory aids, Sturdy shoes/comfortable clothes,Do not bring valuables and remove jewelry
--- NOTE | 2023-11-25 13:14 | PC.NURSE ---
Pt dressed and ready for discharge with all belongings. IV had been removed. Went over D/C instructions with Pt and answered any questions Pt had. Pt denies further questions. Went over hip precautions, encouraged fluid intake to prevent constipation and dehydration. Discussed stroke education, keeping dressing dry and intact, and no driving while on narcotics. Reminded patient to follow hip precautions and follow up as scheduled appt. Co-signed: Rocío Griffin RN/ SN Kris
--- NOTE | 2023-11-25 13:20 | PT.IPTN ---
Current Diagnoses Unilateral primary osteoarthritis, right hip (11/24/23) Surgery Performed Operation Date: 11/24/23 13:45 Actual Procedures p Total Hip Arthroplasty/Anterior Approach(Right) - Gretchen Loredo MD Physical Therapy Treatment Note M2 PT-IP Current Condition Start: 11/25/23 12:37 Freq: NEEDED Status: Discharge Protocol: Document 11/25/23 11:10 AB (Rec: 11/25/23 12:53 AB [id number]) Physical Therapy Current Condition Current Condition Evaluation Date 11/25/23 Treatment Diagnosis s/p R HAILE anterior; difficulty in walking Onset Date 11/24/23 M3 PT-IP Subjective Start: 11/25/23 12:37 Freq: NEEDED Status: Discharge Protocol: Document 11/25/23 13:35 TS (Rec: 11/25/23 13:48 TS [id number]) Subjective Physical Therapy Visit Type Type Treatment Note Visit Start Time 13:20 Visit Stop Time 13:35 Notes Spouse present Number of GL[employer] MILL OPERATOR Visits 1 Physical Therapy Visit Comments Patient Comments Pt found resting in chair, is agreeable to PT. M4 PT-IP Mobility and Gait Start: 11/25/23 12:37 Freq: NEEDED Status: Discharge Protocol: Document 11/25/23 13:35 TS (Rec: 11/25/23 13:48 TS [id number]) PT-Transfer Assessment Sit to and From Stand Sit to and from Stand Standby Assistance,Use of Upper Extremities Equipment Transfer Assistive Device Gait Belt,Front Wheeled Walker Orthotic/Prosthetic Devices or Brace: No Comments Mobility Comments Pt recalled 2/2 hip precautions prior to mobility. Spouse was instructed in and performed donning of gait belt . STS from chair SBA with FWW. She ambulated in room ~50'SBA with emerging step thru gait. She performed stairs x1 sidestepping with single rail CGA and x2 forward CGA from spouse with STRESS ANALYST. Pt was left in chair, all needs met. Gait Assessment Gait Gait Assistance Required: Standby Assistance Distance (Feet) 50 Able to Maintain Weight Bearing Status Yes During Gait Assistive Devices Assistive Device Gait Belt,Front Wheeled Walker Orthotic/Prosthetic Devices or Brace: No Gait Deviations General Gait Pattern Antalgic,Decreased Feet Clearance Factors Limiting Gait Function Factors Limiting Gait Function Decreased Activity Tolerance, Decreased Strength,Difficulty Following Directions,Limited Range of Motion,Pain,Poor Balance,Poor Safety Awareness Stair Climbing Assessment Evaluation Level of Assist On Stairs Contact Guard Assistance Devices Stair Climbing Assistive Devices Right Railing Technique/Endurance Stair Climbing Direction Ascend and Descend Stair Climbing Technique Step to Step Number of Steps Climbed 3 Stair Climbing Set # Repetitions (reps) 1 PT-Balance Assessment Sitting Balance and Reactions Static Sitting Balance Ability Normal Dynamic Sitting Balance Ability Good Standing Balance and Reactions Static Standing Balance Ability Fair Dynamic Standing Balance Ability Fair Device Used FWW M5 PT-IP Objective Assessments Start: 11/25/23 12:37 Freq: NEEDED Status: Discharge Protocol: Document 11/25/23 11:10 AB (Rec: 11/25/23 12:53 AB [id number]) Orientation Orientation/Cognition Level of Alertness Alert Orientation Name Language Function Ability No Deficits Noted Safety Awareness Decreased Safety Awareness Memory Description Short Term Impaired Comments pt with slight confusion Gross Range of Motion Lower Extremity ROM Assessment Within Functional Limits Strength Lower Extremity Strength Assessment Right Impaired Hip 3+/5 Knee 4-/5 Sensation Assessment Sensation Gross Sensation WNL Muscle Tone Muscle Tone WNL Yes M6 PT-IP Treatment Start: 11/25/23 12:37 Freq: NEEDED Status: Discharge Protocol: Document 11/25/23 13:35 TS (Rec: 11/25/23 13:48 TS [id number]) Physical Therapy Treatment Education Education Provided Precautions,Weight Bearing Status,Safety M7 PT-IP Assessment and Plan Start: 11/25/23 12:37 Freq: NEEDED Status: Discharge Protocol: Document 11/25/23 13:35 TS (Rec: 11/25/23 13:48 TS [id number]) PT Summary Assessment and Plan Potential Rehabilitation Potential Good Summary Impairments Pain,ROM,Strength,Balance, Coordination,Sensation,Tone, Cognition,Bed Mobility, Transfers,Gait,Activity Tolerance Progress Towards Goals Progressing Toward Goals Assessment Summary Hardik is making good progress with her mobility. She is SBA for STS with use of FWW. She ambulated in room ~50'SBA with FWW and emerging step thru gait. She recalled 2/2 hip precautions prior to mobility. Spouse was educated on STS technique, donning of gait belt, gait training and steps. PT is recommending home with assistance and outpatient PT. Goals Bed Mobility Goal Independent Transfer Goal Independent,Front Wheeled Walker Gait Goal Independent,Front Wheel Walker Gait Distance 300 Other Goals up/down 3 steps R rail ascending SBA Days to Meet Goals 10 Frequency of Treatment Frequency Of Treatment Twice a Day Treatment Plan Physical Therapy Treatment Plan Bed Mobility Training,Transfer Training,Gait Training, Therapeutic Exercise,Balance Retraining,Post Op Education, Discharge Planning,Hot or Cold Pack,Neuromuscular Re-ed, Coordination Retraining,Manual Therapy Precautions Anterior Hip Precautions No Hip Extension,No Hip External Rotation Weight Bearing Status Weight Bearing Status Weight Bear as Tolerated Allowed Weight Bearing Amount (enter % RLE WBAT or #) (%) Recommendations To Nursing Amount of Assist Needed Standby Assistance Discharge Recommendations PT Discharge Recommendations Home with Assistance, Outpatient PT Transportation Needs at Discharge Private Vehicle
== END 2023-11-25 13:40 | disposition home or self-care (01) ==
LOC: OR 13:25 → AC 13:26
PROVIDERS: PCP Naturopath; Referring Provider Orthopaedic Surgery; Visit Provider Orthopaedic Surgery
PROC: (CPT 27130; principal; 2023-11-24 13:45)
DX: M16.11 Unilateral primary osteoarthritis, right hip (principal); E11.9 Type 2 diabetes mellitus without complications; Z79.84 Long term (current) use of oral hypoglycemic drugs
CPT/HCPCS: 27130; 36415; 73502; 76000; 82962; 85014; 85018; 97116; 97162; 97165; 97530; 97535; C1776; C9290; J0171; J0690; J1100; J2250; J2405; J2704; J3010